=== PATIENT | male | born 1965 | race Caucasian/White ===

== ENCOUNTER → 2016-11-01 | Outpatient (CLI) | payer OTHER ==
[~2016-11-01] MED LIST: HYDR-5688 PO; Naproxen PO; OMEP20TA PO; TRAZ50TA35 PO
--- NOTE | 2016-11-01 16:41 | DIAGNOSTIC IMAGING REPORT ---
LEFT SHOULDER MIN 2 VIEWS ROUTINE, RIGHT SHOULDER MIN 2 VIEWS ROUTINE HISTORY: 51 years-old Male ARTHRALGIA OF MULTIPLE JOINTS COMPARISON: None available TECHNIQUE: 3 views of the bilateral shoulders. FINDINGS: RIGHT SHOULDER: Bones are mildly demineralized. Mild acromioclavicular and glenohumeral degenerative changes are present. No acute fracture or dislocation is identified. Imaged right lung portillo appear clear. No opaque foreign body identified. LEFT SHOULDER: Mild, clavicular and glenohumeral degenerative changes are noted. There is mild spurring of the greater tuberosity with associated subcortical cystic changes. No acute fracture or dislocation is identified. No opaque foreign body. Imaged lung portillo are clear. IMPRESSION: 1. No acute fracture or dislocation identified involving the right or left shoulder. 2. 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 The above report was generated using voice recognition software. It may contain grammatical, syntax or spelling errors. Electronically signed by: Bruno Chatman M.D. 11/01/2016 4:40 PM Dictated Date/Time: 11/01/2016 4:36 PM
--- NOTE | 2016-11-01 16:43 | DIAGNOSTIC IMAGING REPORT ---
RIGHT HIP UNILATERAL 2 VIEWS CLINICAL HISTORY: ARTHRALGIA OF MULTIPLE JOINTS. COMPARISON: None FINDINGS: Alignment of the right hip is anatomic. No fracture or suspicious lesion. There is no evidence for avascular necrosis. Right hip joint space is preserved. IMPRESSION: No significant abnormality of the right hip. Electronically signed by: Dl Monique M.D. 11/01/2016 4:42 PM Dictated Date/Time: 11/01/2016 4:41 PM
--- NOTE | 2016-11-01 16:44 | DIAGNOSTIC IMAGING REPORT ---
LEFT HIP UNILATERAL 2 VIEWS CLINICAL HISTORY: ARTHRALGIA OF MULTIPLE JOINTS COMPARISON: None FINDINGS: Alignment of the left hip is anatomic. There is no fracture or suspicious lesion. Joint space is preserved. There is no evidence for avascular necrosis. IMPRESSION: No significant abnormality of the left hip. Electronically signed by: Dl Monique M.D. 11/01/2016 4:42 PM Dictated Date/Time: 11/01/2016 4:42 PM
--- NOTE | 2016-11-01 16:45 | DIAGNOSTIC IMAGING REPORT ---
L-SPINE MIN 4 VIEWS ROUTINE HISTORY: 51 years-old Male ARTHRALGIA OF MULTIPLE JOINTS COMPARISON: Lumbar puncture spot fluoroscopic image 09/30/2015 TECHNIQUE: 5 views of lumbar spine FINDINGS: There is lumbarization of S1. There is approximately 10% anterior wedging of L1 and 25% anterior wedging of T12, both of which are age-indeterminate, however suggests chronic process. The lumbar vertebral body heights are otherwise well-maintained. Moderate intervertebral disc space narrowing is seen at T12-L1. There is minimal multilevel facet arthrosis and endplate spurring with otherwise no significant degenerative changes. Moderate stool burden noted. IMPRESSION: 1. Mild anterior wedging of the T12 and L1 vertebral bodies is age indeterminate without comparison, however likely chronic without associated retropulsion identified. Moderate intervertebral disc space narrowing is also seen at T12-L1. 2. Minimal multilevel endplate spurring and facet arthrosis involves the lumbar spine. The above report was generated using voice recognition software. It may contain grammatical, syntax or spelling errors. Electronically signed by: Bruno Chatman M.D. 11/01/2016 4:43 PM Dictated Date/Time: 11/01/2016 4:40 PM
--- NOTE | 2016-11-01 16:46 | DIAGNOSTIC IMAGING REPORT ---
RIGHT KNEE 1 OR 2 VIEWS ROUTINE CLINICAL HISTORY: ARTHRALGIA OF MULTIPLE JOINTS COMPARISON: None FINDINGS: Alignment of the right knee is anatomic. No fracture or suspicious lesion. There is no joint effusion. Joint spaces are preserved. Multiple calcific densities measuring up to 8 mm project over the posterior medial aspect of the right knee. IMPRESSION: 1. No fracture or joint effusion of the right knee. 2. Multiple calcific densities posterior medial to the right knee which likely reflect loose bodies within a popliteal cyst. Electronically signed by: Dl Monique M.D. 11/01/2016 4:44 PM Dictated Date/Time: 11/01/2016 4:43 PM
--- NOTE | 2016-11-01 16:47 | DIAGNOSTIC IMAGING REPORT ---
LEFT KNEE 1 OR 2 VIEWS ROUTINE CLINICAL HISTORY: ARTHRALGIA OF MULTIPLE JOINTS COMPARISON: None FINDINGS: Alignment of the left knee is anatomic. There is no fracture or joint effusion. No lesion is identified. No erosions are identified. IMPRESSION: 1. No significant abnormality of the left knee. 2. No radiographic evidence of an erosive/inflammatory arthropathy. Electronically signed by: Dl Monique M.D. 11/01/2016 4:45 PM Dictated Date/Time: 11/01/2016 4:44 PM
--- NOTE | 2016-11-01 16:49 | DIAGNOSTIC IMAGING REPORT ---
SI JOINTS 3 OR MORE VIEWS HISTORY: 51 years-old Male ARTHRALGIA OF MULTIPLE JOINTS COMPARISON: Lumbar spine radiographs of same day TECHNIQUE: 3 views of the SI joints FINDINGS: No erosive changes of the sacroiliac joints are identified. No significant degenerative changes. No acute fracture or dislocation. No opaque foreign body. IMPRESSION: No acute bony abnormality of the sacroiliac joints. No evidence of erosive arthropathy. The above report was generated using voice recognition software. It may contain grammatical, syntax or spelling errors. Electronically signed by: Bruno Chatman M.D. 11/01/2016 4:47 PM Dictated Date/Time: 11/01/2016 4:44 PM
[2016-11-01 17:15] LABS: BASO % 0.3 %; BASO ABS # 0.02 K/uL (0-0.2); COMPLETE YES; HEMATOCRIT 40.5 % (42-52); IG% 0.2 %; LYMPH % 30.9 %; LYMPH ABS # 1.99 K/uL (1.2-3.4); MEAN CELL VOLUME 88.4 fL (80-100); MEAN CORPUSCULAR HEMOGLOBIN 29.7 pg (25-34); MEAN CORPUSCULAR HGB CONC 33.6 g/dl (32-36); MONO % 9.5 %; NEUT % 57.1 %; PLATELET COUNT 310 K/uL (130-400); RED BLOOD COUNT 4.58 M/uL (4.7-6.1); WHITE BLOOD COUNT 6.43 K/uL (4.8-10.8)
[2016-11-01 17:26] LABS: ALT/SGPT 69 U/L (12-78); BLOOD UREA NITROGEN 15 mg/dl (7-18); BUN/CREATININE RATIO 12.7 (10-20); CALCIUM 9.1 mg/dl (8.5-10.1); CARBON DIOXIDE 29 mmol/L (21-32); CHLORIDE 104 mmol/L (98-107); GLUCOSE 105 mg/dl (70-99); POTASSIUM 3.9 mmol/L (3.5-5.1); SODIUM 138 mmol/L (136-145)
[2016-11-01 17:36] LABS: ALB/GLOB RATIO 1.1 (0.9-2); ALKALINE PHOSPHATASE 65 U/L (45-117); AST/SGOT 34 U/L (15-37); TOTAL IRON BINDING CAPACITY 326 mcg/dl (250-450)
--- NOTE | 2016-11-01 17:36 | DIAGNOSTIC IMAGING REPORT ---
RIGHT HAND MIN 3 VIEWS ROUTINE, LEFT HAND MIN 3 VIEWS ROUTINE HISTORY: 51 years-old Male ARTHRALGIA OF MULTIPLE JOINTS Right COMPARISON: None available TECHNIQUE: 3 views of the bilateral hands FINDINGS: RIGHT: No acute fracture or dislocation identified. Mild first carpometacarpal and triscaphe degenerative changes are noted. Mild to moderate degenerative changes involving the second and third metacarpophalangeal joints with associated subcortical cystic changes and somewhat hooked morphology of marginal osteophytosis. There also appears to be marginal erosions within the second third metacarpal heads. Soft tissues are within normal limits. LEFT: No acute fracture or dislocation identified. There is suggestion of marginal erosions involving the second and third metacarpophalangeal joints with subcortical cystic changes and somewhat hooked morphology of marginal osteophytosis. Mild triscaphe and first carpometacarpal degenerative changes are noted. Soft tissues are within normal limits. No chondrocalcinosis identified. IMPRESSION: 1. No acute fracture or dislocation of the right or left hand. 2. Degenerative changes of the second and third metacarpophalangeal joints bilaterally with subcortical cystic changes and suggestion of subtle marginal erosions raises the possibility of CPPD arthropathy. The above report was generated using voice recognition software. It may contain grammatical, syntax or spelling errors. Electronically signed by: Bruno Chatman M.D. 11/01/2016 5:35 PM Dictated Date/Time: 11/01/2016 5:30 PM
[2016-11-01 19:12] LABS: LYME DISEASE AB IGG NEG (NEG); LYME DISEASE AB IGM NEG (NEG)
[2016-11-02 05:25] LABS: RAPID PLASMA REAGIN NONREACTIVE (NONREACT)
[2016-11-07 05:01] LABS: ANTI-CENTROMERE AB <1.0 NEG AI (<1.0 NEG); ANTI-SS-A <1.0 NEG AI (<1.0 NEG); ANTI-SS-B <1.0 NEG AI (<1.0 NEG); DNA ds CRITHIDIA NEGATIVE (NEGATIVE); MICROSOMAL AB <1 IU/ML (<9); Sm Antibody <1.0 NEG AI (<1.0 NEG)
--- NOTE | 2016-11-09 11:53 | CODING QUERY MEDICAL NECESSITY ---
CQSUPPORTING DIAGNOSIS NEEDED A supporting diagnosis is required for the test/procedure performed on this patient in order for us to be reimbursed by the patient's insurance. Please provide a supporting diagnosis for the following test/procedure listed below next to the test name along with your signature. *If there is no additional diagnosis for this patient that would support the following test/procedure please document that below next to the test/procedure. Test(s)/Procedure(s) that require a supporting diagnosis: DOS 11/01/16 VITAMIN D TEST VITAMIN B12 TEST SCREENING FOR SEXUALLY TRANSMITTED DISEASE TEST Provider Signature: Date: Thank you Cora [facility] Once completed, please kindly fax back to [phone] For questions please call [phone]
== END | disposition home or self-care (01) ==
LOC: C.LABBC 15:16
PROVIDERS: ATTEND Psychiatry & Neurology Neurology
DX: M25.50 Pain in unspecified joint (principal); A69.20 Lyme disease, unspecified; R53.82 Chronic fatigue, unspecified; R20.8 Other disturbances of skin sensation; G62.9 Polyneuropathy, unspecified; R29.898 Other symptoms and signs involving the musculoskeletal system; M19.041 Primary osteoarthritis, right hand; M19.042 Primary osteoarthritis, left hand; R93.7 Abnormal findings on diagnostic imaging of other parts of musculoskeletal system; M51.35 Other intervertebral disc degeneration, thoracolumbar region; Z79.899 Other long term (current) drug therapy; R41.89 Other symptoms and signs involving cognitive functions and awareness